=== PATIENT | male | born 1990 | race Caucasian/White ===

== ENCOUNTER 2024-12-05 13:38 | Outpatient (CLI) | payer OTHER ==
--- NOTE | 2024-12-05 18:13 | RADIOLOGY REPORT ---
PROCEDURE: MR MRI LUMBAR SPINE INDICATION: OTHER INJURY OF UNSPECIFIED BODY REGION, INITIAL ENCOUNTER Exam Date: 12/05/2024 03:42 PM COMPARISON: None TECHNIQUE: MRI lumbar spine without intravenous contrast. FINDINGS: The lumbar alignment is intact. There are degenerative endplate changes including modic endplate ch anges with anterior and lateral osteophytes throughout the lumbar spine. The visualized distal spinal cord and conus medullaris are within normal limits. The conus medullaris appears to terminate withi n normal limits. The visualized retroperitoneal and paraspinal soft tissues are unremarkable. Diffus e epidural lipomatosis. The following axial levels are detailed below: T12-L1: Unremarkable. L1-L2: There is a moderate circumferential disc bulge complicated by facet arthropathy narrowing th e central canal to 8 mm with associated mild bilateral neuroforaminal stenosis. L2-L3: There is a mild circumferential disc bulge complicated by facet arthropathy narrowing the pavel tral canal to 9 mm with associated mild bilateral neuroforaminal stenosis. L3-L4: Unremarkable. L4-L5: There is a mild circumferential disc bulge. No significant central canal or neuroforaminal s tenosis. L5-S1: There is a moderate circumferential disc bulge complicated by facet arthropathy associated wi th mild to moderate left neuroforaminal stenosis. Central canal stenosis primarily due to epidural li pomatosis. IMPRESSION: 1. Multilevel degenerative disease complicated by epidural lipomatosis. Moderate central canal stenos is L1-2. Mild central canal stenosis L2-3. Neural foraminal stenosis as above. HS:Y
--- NOTE | 2024-12-05 18:14 | RADIOLOGY REPORT ---
PROCEDURE: MR MRI THORACIC SPINE INDICATION: OTHER INJURY OF UNSPECIFIED BODY REGION, INITIAL ENCOUNTER Exam Date: 12/05/2024 03:03 PM COMPARISON: None TECHNIQUE: MRI thoracic spine without intravenous contrast. FINDINGS: The thoracic alignment is intact. Mild chronic anterior wedging compression deformity of T12. Ther e are degenerative endplate changes with anterior and lateral osteophytes mid to lower thoracic level s. The thoracic cord signal and contour appear intact. There is no significant posterior disc diseas e, central canal or neural foraminal narrowing. The visualized paraspinal soft tissues are otherwise unremarkable. Diffuse epidural lipomatosis. IMPRESSION: 1. No significant posterior disc disease, central canal or neural foraminal narrowing. Mild degenerat nina disease. Mild chronic anterior wedging compression deformity of T12. 2. Intact thoracic cord signal. No evidence of cord compression. HS:Y
== END 2024-12-05 23:59 | disposition home or self-care (01) ==
LOC: MRI02 13:38
PROVIDERS: ATTEND Student in an Organized Health Care Education/Training Program
DX: S22.080A Wedge compression fracture of T11-T12 vertebra, initial encounter for closed fracture (principal); T14.8XXA Other injury of unspecified body region, initial encounter; M48.07 Spinal stenosis, lumbosacral region; M47.27 Other spondylosis with radiculopathy, lumbosacral region; M48.04 Spinal stenosis, thoracic region; M51.34 Other intervertebral disc degeneration, thoracic region; M51.17 Intervertebral disc disorders with radiculopathy, lumbosacral region; X58.XXXA Exposure to other specified factors, initial encounter; Y93.9 Activity, unspecified; Y92.89 Other specified places as the place of occurrence of the external cause; Y99.8 Other external cause status
CPT/HCPCS: 72146; 72148